=== PATIENT | male | born 1950 | race Two or more races ===

== ENCOUNTER 2018-12-14 16:33 | Emergency (ER) | payer OTHER ==
[~2018-12-14] VITALS: Ht 165.1 cm; Wt 70.3 kg
[2018-12-14 16:50] VITALS: BP 175/68
[2018-12-14] MEDS ORDERED: NS 250 ML IV ONE (16:50)
--- NOTE | 2018-12-14 16:50 | NUR ---
ED Nurse Note: received pt. pt brought by RA from home due to generalized weakness for serveral days. pt is on dialysis every Mon, Wed and Fri. and last one done on 12/12/18. AV shunt noted on left upper arm. pt appears to be very tired. pt c/o pain on right posterior neck for 5 days. denies any injury or trauma. per pt, pt is bed rest for last 5 months due to weakness. dry skin noted. no open wound. AAO x4. with polish speaker. respirations even and non-labored noted. on safety intern. will wait for the further order.
[2018-12-14 17:15] LABS: EOSINOPHILS % (AUTO) 10.7 % (0.0-3.0); HEMATOCRIT 28.2 % (42.0-52.0); HEMOGLOBIN 9.3 G/DL (14.2-18.0); MEAN CORPUSCULAR VOLUME 98 FL (80-99); MONOCYTES % (AUTO) 8.1 % (1.0-10.0); NEUTROPHILS % (AUTO) 66.2 % (45.0-75.0); PLATELET COUNT 294 K/UL (150-450); RED BLOOD COUNT 2.87 M/UL (4.70-6.10); RED CELL DISTRIBUTION WIDTH 14.7 % (11.6-14.8)
[2018-12-14 17:24] LABS: ANION GAP 11 mmol/L (5-15); BLOOD UREA NITROGEN 76 mg/dL (7-18); CALCIUM 9.4 MG/DL (8.5-10.1); CARBON DIOXIDE 31 MMOL/L (21-32); CHLORIDE 97 MMOL/L (98-107); CREATININE 7.7 MG/DL (0.55-1.30); POTASSIUM 4.9 MMOL/L (3.5-5.1); SODIUM 139 MMOL/L (136-145)
[2018-12-14 17:39] LABS: ALANINE AMINOTRANSFERASE 19 U/L (12-78); ALBUMIN 3.1 G/DL (3.4-5.0); ALBUMIN/GLOBULIN RATIO 0.9 (1.0-2.7); ALKALINE PHOSPHATASE 95 U/L (46-116); ASPARTATE AMINO TRANSFERASE 12 U/L (15-37); CKMB 0.9 NG/ML (0.0-3.6); CREATINE KINASE 26 U/L (26-308)
--- NOTE | 2018-12-14 18:02 | Emergency Room Report ---
History of Present Illness General Chief Complaint: Generalized Weakness Source: Patient, EMS Present Illness HPI 68-year-old male presents ED for evaluation. Brought in by EMS. Complaining of dizziness and nausea 3 days. Denies any headache. Denies any chest pain or shortness of breath. History of end-stage renal disease. Gets dialysis Saturday. States he is compliant with his dialysis. Denies fevers chills. Denies cough. No other aggravating relieving factors. Denies any other associated symptoms Allergies: Coded Allergies: No Known Allergies (Unverified , 12/14/18) Patient History Past Medical History: CVA/TIA, renal disease, dialysis Past Surgical History: none Pertinent Family History: none Social History: Denies: smoking, alcohol use, drug use Immunizations: UTD Reviewed Nursing Documentation: PMH: Agreed; PSxH: Agreed Nursing Documentation-PMH Past Medical History: No History, Except For Hx Diabetes: Yes Hx Dialysis: Yes - [facility] Hx Cerebrovascular Accident: Yes Review of Systems All Other Systems: negative except mentioned in HPI Physical Exam Vital Signs Date Time Temp Pulse Resp B/P (MAP) Pulse Ox O2 Delivery O2 Flow Rate FiO2 12/14/18 16:20 98.6 76 18 194/110 99 Room Air Sp02 EP Interpretation: reviewed, normal General Appearance: no apparent distress, alert, GCS 15, non-toxic Head: normocephalic, atraumatic Eyes: bilateral eye normal inspection, bilateral eye PERRL ENT: hearing grossly normal, normal pharynx, no angioedema, normal voice Neck: full range of motion, supple/symm/no masses Respiratory: chest non-tender, lungs clear, normal breath sounds, speaking full sentences Cardiovascular #1: regular rate, rhythm, no edema Cardiovascular #2: 2+ carotid (R), 2+ carotid (L), 2+ radial (R), 2+ radial (L) , 2+ dorsalis pedis (R), 2+ dorsalis pedis (L) Gastrointestinal: normal bowel sounds, non tender, soft, non-distended, no guarding, no rebound Rectal: deferred Genitourinary: normal inspection, no CVA tenderness Musculoskeletal: back normal, gait/station normal, normal range of motion, non- tender Neurologic: alert, oriented x3, responsive, motor strength/tone normal, sensory intact, speech normal Psychiatric: judgement/insight normal, memory normal, mood/affect normal, no suicidal/homicidal ideation Reflexes: 3+ bicep (R), 3+ bicep (L), 3+ tricep (R), 3+ tricep (L), 3+ knee (R) , 3+ knee (L) Skin: normal color, no rash, warm/dry, well hydrated Lymphatic: no adenopathy Medical Decision Making Diagnostic Impression: Primary Impression: Episode of generalized weakness Additional Impressions: Dizziness ESRD on dialysis ER Course Hospital Course 68-year-old M presents ED c/o dizziness. Differential diagnoses include: CT/unstable angina, arrythmia, dehydration Clinical course Patient placed on stretcher. on manager monitoring. After initial history and physical I ordered labs, EKG, chest x-ray, IVFs, zofran labs reviewed- no leukocytosis, hemoglobin/hematocrit ok, BUN/Cr elevated, K ok , trop 0.025, BNP elevated EKG- NSR, no acute ischemic changes interpreted by me Chest x-ray- some cardiomegaly, no focal consolidation, some atelectasis in R lower lung base given hydralazine for elevated BP. Because of insurance patient will be transferred I. I feel this is a highly complex case requiring extensive working including EKG/Rhythm strip, Xray/CT/US, Blood/urine lab work, repeat exams while in ED, and administration of strong opiates/narcotics for pain control, admission to hospital or close patient follow up. Diagnosis - episode of generalized weakness, dizziness, ESRD on dialysis admitted to telemetry in serious condition Labs Test 12/14/18 16:40 White Blood Count 10.0 K/UL (4.8-10.8) Red Blood Count 2.87 M/UL (4.70-6.10) Hemoglobin 9.3 G/DL (14.2-18.0) Hematocrit 28.2 % (42.0-52.0) Mean Corpuscular Volume 98 FL (80-99) Mean Corpuscular Hemoglobin 32.3 PG (27.0-31.0) Mean Corpuscular Hemoglobin Concent 32.9 G/DL (32.0-36.0) Red Cell Distribution Width 14.7 % (11.6-14.8) Platelet Count 294 K/UL (150-450) Mean Platelet Volume 5.9 FL (6.5-10.1) Neutrophils (%) (Auto) 66.2 % (45.0-75.0) Lymphocytes (%) (Auto) 14.0 % (20.0-45.0) Monocytes (%) (Auto) 8.1 % (1.0-10.0) Eosinophils (%) (Auto) 10.7 % (0.0-3.0) Basophils (%) (Auto) 1.0 % (0.0-2.0) Sodium Level 139 MMOL/L (136-145) Potassium Level 4.9 MMOL/L (3.5-5.1) Chloride Level 97 MMOL/L (98-107) Carbon Dioxide Level 31 MMOL/L (21-32) Anion Gap 11 mmol/L (5-15) Blood Urea Nitrogen 76 mg/dL (7-18) Creatinine 7.7 MG/DL (0.55-1.30) Estimat Glomerular Filtration Rate 7.0 mL/min (>60) Glucose Level 176 MG/DL (74-106) Calcium Level 9.4 MG/DL (8.5-10.1) Total Bilirubin 1.0 MG/DL (0.2-1.0) Aspartate Amino Transf (AST/SGOT) 12 U/L (15-37) Alanine Aminotransferase (ALT/SGPT) 19 U/L (12-78) Alkaline Phosphatase 95 U/L (46-116) Total Creatine Kinase 26 U/L (26-308) Creatine Kinase MB 0.9 NG/ML (0.0-3.6) Creatine Kinase MB Relative Index 3.4 Troponin I 0.025 ng/mL (0.000-0.056) Pro-B-Type Natriuretic Peptide 62460 pg/mL (0-125) Total Protein 6.6 G/DL (6.4-8.2) Albumin 3.1 G/DL (3.4-5.0) Globulin 3.5 g/dL Albumin/Globulin Ratio 0.9 (1.0-2.7) EKG Diagnostic Results Rate: normal Rhythm: NSR ST Segments: no acute changes ASA given to the pt in ED: No Rhythm Strip Diag. Results EP Interpretation: yes Rhythm: NSR, no PVC's, no ectopy Chest X-Ray Diagnostic Results Chest X-Ray Diagnostic Results : Chest X-Ray Ordered: Yes # of Views/Limited/Complete: 1 View Indication: Other EP Interpretation: Yes Interpretation: no effusion, no pneumothorax, other - atelectasis R lower lung base Impression: Other - atelectasis Electronically Signed by: Electronically signed by Margarito Espinoza MD Last Vital Signs Date Time Temp Pulse Resp B/P (MAP) Pulse Ox O2 Delivery O2 Flow Rate FiO2 12/14/18 16:20 98.6 76 18 194/110 99 Room Air Status: improved Disposition: ADMITTED INPATIENT Condition: Serious Referrals: [facility],REFERRING (PCP) Margarito Espinoza MD Dec 14, 2018 18:02
[2018-12-14 18:31] VITALS: BP 183/66
--- NOTE | 2018-12-14 18:32 | NUR ---
ED Nurse Note: 183/66mmHg with [address] Espinoza and will wait for the order.
--- NOTE | 2018-12-14 18:53 | NUR ---
ED Nurse Note: RN attempted to give a report to IVETTE Novoa. will try.
--- NOTE | 2018-12-14 19:23 | NUR ---
HAND-OFF: Report given to DIANA Torres.
--- NOTE | 2018-12-14 19:30 | NUR ---
ED Nurse Note: RECIEVED REPORT TO [facility]ME [facility], PT IN BED SLEEPING, AROUSES EASILY TO VERBAL STIMULI, PT DAUGHTER AT BEDSIDE, NO ACUTE CHANGES OR DISTRESS NOTED, PT MEDICATED FOR ELEVATED B/P, MEDS EFFECTIVE, PT BEING TRANSFERRED FOR CONTINUED CARE, WILL CONTINUE TO CLOSELY MONITOR WHILE WAITING FOR AMBULANCE TRANSPORT.
[2018-12-14 20:00] VITALS: BP 168/70
--- NOTE | 2018-12-14 21:15 | NUR ---
ED Nurse Note: NO ACUTE CHANGES OR INCREASED DISTRESS, PT RESTING IN BED QUIETLY, CONTINUES TO WAIT FOR DISPOSITION, NO SOB OR LABORED BREATHING, IV SITE PATENT, ON CARDIAC MONITORING, NAD NOTED, WILL CONTINUE TO CLOSELY MONITOR.
[2018-12-14 21:30] VITALS: BP 161/74
--- NOTE | 2018-12-14 22:35 | NUR ---
ED Nurse Note: PT BEING TRANSFERRED TO [facility], REPORT CALLED TO EVER ORTIZ AT [phone], REPORT GIVEN, PT IN BED AWAKE AND ALERT, NO CP, NO SOB OR LABORED BREATHING, SALINE LOCK INTACT AND PATENT, PT DAUGHTER GOING VIA AMBULANCE WITH PT ALSO, PT HAS ALL BELONGINGS, NAD NOTED DURING PT TRANSPORT VIA [id number], REPORT AND ALL PAPERS GIVEN TO DIANA DE LEÓN.
[2018-12-14 22:40] VITALS: BP 153/62
[2018-12-14 23:02] VITALS: BP 161/74
--- NOTE | 2018-12-15 09:28 | Diagnostic Imaging Report ---
Indication: Cough and dizziness Technique: One view of the chest Comparison: none Findings: Atelectatic changes are seen at the right infrahilar region. There is some retrocardiac atelectasis as well. The right hemidiaphragm is elevated. The heart size is normal. The pleural spaces are clear. Impression: Bilateral atelectatic changes. No definite acute process otherwise
== END 2018-12-14 22:50 | disposition short-term general hospital (02) ==
LOC: EDBD 16:33 → EMR 17:00
DX: R53.1 Weakness (principal); R42 Dizziness and giddiness; E11.22 Type 2 diabetes mellitus with diabetic chronic kidney disease; N18.6 End stage renal disease; Z99.2 Dependence on renal dialysis; Z86.73 Personal history of transient ischemic attack (TIA), and cerebral infarction without residual deficits
CPT/HCPCS: 36415; 71045; 80053; 82550; 82553; 82962; 83880; 84484; 85025; 87081; 93005; 96365; 96375; 99285; J0360; J1956; J7050